=== PATIENT | male | born 1955 | race Caucasian/White ===

== ENCOUNTER 2017-11-30 16:13 | Emergency (ER) | payer OTHER ==
[2017-11-30 16:23] VITALS: TEMP 98.6
--- NOTE | 2017-11-30 16:34 | EDPHY ---
HPI/HX/ROS/PE/MDM Narrative: CHIEF COMPLAINT: Left leg stiffness HPI: The patient is a 62 y/o male with a history of schizophrenia and a seizure disorder complaining of lower left leg stiffness and pain. He had a DVT in 2005 , but is no longer on anticoagulants. No recent trauma or injury. No chest pain , shortness of breath, abdominal pain, paresthesias, numbness, fever. REVIEW OF SYSTEMS: Aside from elements discussed in the HPI, a comprehensive 10-point review of systems was reviewed and is negative. PMH: DVT, seizure disorder, schizophrenia SOCIAL HISTORY: Lives in [place], single, employed PHYSICAL EXAM: General: Patient is alert, in no acute distress. ENT: Eyes are normal to inspection. ENT inspection normal. Neck: Normal inspection. Full range of motion. Respiratory: No respiratory distress. Breath sounds normal bilaterally. Cardiovascular: Regular rate and rhythm. Strong peripheral pulses. Normal cap refill. Abdomen: The abdomen is nontender to palpation. There are no peritoneal signs. There are normal bowel sounds. Back: Normal to inspection. No tenderness to palpation. Skin: Normal color. Multiple erythemic lesions on lower extremities. Warm and dry. Extremities: Tenderness and swelling of left posterior upper calf. Full range of motion. Neuro: Oriented x3. Normal motor function. Normal sensory function. ED Course: 1754: Spoke with radiologist, patient has a left femoral vein DVT. 1809: Reassessed patient; I have prescribed him Xarelto as a temporary anticoagulant. He will be given a dose of Lovenox prior to discharge. I have discussed the importance of following up with his PCP for a half-way anticoagulation treatment. Return precautions provided; patient is comfortable with this plan. MDM: This patient presents with signs and symptoms of DVT, confirmed by ultrasound. He has no signs or symptoms to suggest PE. Medical management is made somewhat more difficult on this patient by concurrent use of Dilantin which has been shown to decrease the efficacy of the novel anticoagulants, as well as the fact that given the patient's living situation and history of schizophrenia, he does not feel comfortable self administering Lovenox, and I agree this seems like a suboptimal solution for him. Given two possibly bad choices, we will treat the patient with Lovenox here overnight and the patient will need urgent follow-up with his primary care physician tomorrow to come up with plan. I will write him a prescription for a week-long course of Xarelto as a temporary measure. - Data Points Imaging Results: Imaging Impressions Extremity Venous Study 11/30/17 17:20 Impression: Thrombus within the left mid femoral vein through the popliteal vein without evidence of internal color flow Doppler measurements compatible with DVT. This finding is of indeterminate age. This is in similar distribution to the prior remote ultrasound study from August,. Findings discussed with Mannie Kraus MD at 17:56 hour, 11/30/2017. Imaging: Discussed imaging studies w/ scalloper Radiologist General Time Seen by Provider: 11/30/17 16:31 Initial Vital Signs: Initial Vital Signs Temperature (C) 37.0 C 11/30/17 16:21 Heart Rate 88 11/30/17 16:21 Respiratory Rate 18 11/30/17 16:21 Blood Pressure 108/82 H 11/30/17 16:21 O2 Sat (%) 95 11/30/17 16:21 O2 Delivery Mode Room Air Allergies/Adverse Reactions: No Known Allergies Allergy (Unverified 11/30/17 16:20) Home Medications: Medication Instructions Recorded Cogentin 11/30/17 Dilantin 11/30/17 Haldol 11/30/17 Rivaroxaban [Xarelto 15mg (*)] 15 mg PO BID #14 tab 11/30/17 Departure - Departure Disposition: Home, Routine, Self-Care Clinical Impression: Dvt femoral (deep venous thrombosis) Qualifiers: Chronicity: acute Laterality: left Qualified Code(s): I82.412 - Acute embolism and thrombosis of left femoral vein Condition: Good Instructions: Rivaroxaban (By mouth), Deep Vein Thrombosis (ED), Deep Vein Thrombosis Prevention (ED) Additional Instructions: Take Xarelto as prescribed. You must call your primary care provider tomorrow to make an appointment, to discuss a half-way anticoagulation treatment. Return to the emergency department for worsening pain, shortness of breath, chest pain, swelling, numbness, weakness or other concerns. Referrals: Mayra French PA [Primary Care Provider] - As per Instructions Prescriptions: Rivaroxaban [Xarelto 15mg (*)] 15 mg PO BID #14 tab Report Scribed for: Mannie Kraus Report Scribed by: Vikki Faria Date of Report: 11/30/17 Time of Report: 16:33 Physician Review and Approval Statement: Portions of this note were transcribed by an ED scribe. I personally performed the history, physical exam, and medical decision making; and confirm the accuracy of the information in the transcribed note.
[2017-11-30] MEDS ORDERED: ENOXAPARIN 80 MG/0.8 ML SYR SC ONE (18:06)
[2017-11-30 18:30] VITALS: BP 124/86; PULSE 77; RESP 16; O2SAT 99
== END 2017-11-30 18:44 | disposition home or self-care (01) ==
PROC: 3E023GC Introduction of Other Therapeutic Substance into Muscle, Percutaneous Approach (ICD-10-PCS; principal; 2017-11-30)
DX: I82.412 Acute embolism and thrombosis of left femoral vein (principal)
CPT/HCPCS: 93971; 96372; 99285; J1650

== ENCOUNTER → 2018-03-03 | Outpatient (CLI) | payer OTHER | LOC: FIMAGING 13:44 | PROVIDERS: ATTEND Physician Assistant | DX: Z13.820 Encounter for screening for osteoporosis (principal); M81.0 Age-related osteoporosis without current pathological fracture ==